=== PATIENT | female | born 1970 | race Caucasian/White ===

== ENCOUNTER 2022-06-15 18:02 | Emergency (ER) | payer MEDICAID, OTHER ==
[~2022-06-15] VITALS: Ht 160 cm; Wt 75.3 kg
[~2022-06-15 18:02] MED LIST: FERR324T20 PO; FOLI1TAB19 PO; PREN-385 PO
[2022-06-15 18:14] VITALS: BP 167/78
--- NOTE | 2022-06-15 18:38 | NUR ---
51 Y/O F BIB SELF C/O RAPID HEART RATE SINCE YESTERDAY. PT STATED "IT FEELS LIKE SOMETHING IS SHAKING REALLY VALIENTE IN MY CHEST". PT ALSO C/O CHEST PAIN 6/10 RADIATES TO HER L UPPER BACK. NAK OR PMH
--- NOTE | 2022-06-15 19:03 | NUR ---
51/F PRESENTS TO ED WITH PALPITATIONS SINCE YESTERDAY. PATIENT REPORTS "I FEEL LIKE MY CHEST IS SHAKING" DENIES DRUG, ALCOHOL OR CAFFEINE USE RECENTLY, DENIES N/V/D OR SOB. STATES INTERMITTENT "THROBBING" LIKE 6/10 CHEST PAIN THAT RADIATES TO LEFT UPPER BACK, PATIENTS HR UPON ARRIVAL TO ED 65.
--- NOTE | 2022-06-15 19:15 | NUR ---
GAVE REPORT TO CARLYLE BROTHERS.
--- NOTE | 2022-06-15 19:30 | NUR ---
HANDOFF GIVEN TO ZEV FORMAN
--- NOTE | 2022-06-15 19:35 | NUR ---
Patient lying in bed, A/Ox4, chest rise and fall symmetrical, no c/o pain or s/s of distress, patient on monitor.
--- NOTE | 2022-06-15 20:15 | NUR ---
Patient lying in bed, A/Ox4, chest rise and fall symmetrical, no c/o pain or s/s of distress, patient on monitor.
[2022-06-15] MEDS ORDERED: NACL 0.9% 1,000 ML IV ONE (20:35)
[2022-06-15 20:45] LABS: BASOPHILS # (AUTO) 0.1 K/uL (0.00-0.22); BASOPHILS % (AUTO) 0.9 % (0.0-2.0); EOSINOPHILS # (AUTO) 0.1 K/uL (0-0.4); EOSINOPHILS % (AUTO) 1.5 % (0.0-4.0); HEMATOCRIT 40.4 % (36-48); HEMOGLOBIN 13.2 g/dL (12.0-16.0); LYMPHOCYTES # (AUTO) 3.1 K/uL (2.5-16.5); MEAN CORPUSCULAR HEMOGLOBIN 29 pg (27-31); MEAN CORPUSCULAR HGB CONC 33 g/dL (33-37); MEAN CORPUSCULAR VOLUME 86.8 fL (80-94); MONOCYTES # (AUTO) 0.5 K/uL (0.8-1.0); MONOCYTES % (AUTO) 6.8 % (1.7-9.3); NEUTROPHILS # (AUTO) 4.1 K/uL (1.8-7.7); NEUTROPHILS % (AUTO) 51.8 % (42.2-75.2); PLATELET COUNT (AUTO) 208 K/uL (140-450); RED BLOOD CELL COUNT(AUTO) 4.65 MIL/uL (4.20-5.40); RED CELL DISTRIBUTION WIDTH 14.2 % (11.6-13.7); WHITE BLOOD COUNT (AUTO) 7.9 K/uL (4.8-10.8)
[2022-06-15 21:03] LABS: ALBUMIN 3.5 g/dL (3.4-5.0); ANION GAP 8.3 (8-16); ASPARTATE AMINOTRANSFERASE 38 U/L (15-37); CARBON DIOXIDE 29.3 mmol/L (21-32); CHLORIDE 105 mmol/L (98-107); GFR ARICAN-AMERICAN 75 mL/min (>90); GLUCOSE 96 mg/dL (74-106); POTASSIUM 3.6 mmol/L (3.5-5.1); SODIUM SERUM 139 mmol/L (136-145); TOTAL BILIRUBIN 0.2 mg/dL (0.0-1.0); UREA NITROGEN, BLOOD 17 mg/dL (7-18)
--- NOTE | 2022-06-15 21:50 | NUR ---
Patient lying in bed, A/Ox4, chest rise and fall symmetrical, no c/o pain or s/s of distress, patient on monitor.
[2022-06-15] MEDS ORDERED: IBUP-2213 PO (22:01)
[2022-06-15 22:11] VITALS: BP 135/82
== END 2022-06-15 22:12 | disposition home or self-care (01) ==
LOC: MED 18:02
DX: R00.2 Palpitations (principal); R07.89 Other chest pain; Z79.899 Other long term (current) drug therapy
CPT/HCPCS: 36415; 71045; 80053; 84484; 85025; 93005; 96360; 99285; J7030; Q0092

== ENCOUNTER 2024-01-13 21:14 | Emergency (ER) | payer OTHER ==
[~2024-01-13] VITALS: Ht 165.1 cm; Wt 74.8 kg
[~2024-01-13 21:14] MED LIST changes: +IBUP-2213 PO
[2024-01-13 21:35] VITALS: BP 152/89; PULSE 63; RESP 16; TEMP 98.4; O2SAT 96
[2024-01-13] MEDS ORDERED: ACET-8905 PO (21:54)
[2024-01-13] MEDS ORDERED: VALA1TAB2 PO ×2 (21:54→21:57)
[2024-01-13 21:56] VITALS: O2SAT 96
[2024-01-13] MEDS: HYDROcodone/APAP 5/325 MG 1 TAB TAB PO ONE (22:00)
[2024-01-13 22:15] VITALS: BP 152/89; PULSE 63; RESP 16; TEMP 98.4; O2SAT 96
== END 2024-01-13 22:15 | disposition home or self-care (01) ==
LOC: MED 21:14
DX: B02.9 Zoster without complications (principal); I10 Essential (primary) hypertension; Z79.1 Long term (current) use of non-steroidal anti-inflammatories (NSAID); Z79.899 Other long term (current) drug therapy
CPT/HCPCS: 99283